=== PATIENT | female | born 1995 | race Caucasian/White ===

== ENCOUNTER 2020-10-05 14:34 | Emergency (ER) | payer BC, SELFPAY ==
[2020-10-05 15:20] VITALS: BP 129/69; PULSE 93; RESP 16; TEMP 36.3; O2SAT 99; BMI 45.3
--- NOTE | 2020-10-05 16:28 | PC.NURSE ---
pt refusing ekg
--- NOTE | 2020-10-05 16:36 | PC.NURSE ---
Patient refusing IV,states she passed out at work at 1130this am, states she has not been drinking enough water. veneer taping machine offbearer at bedside to do EKG and patient refused. Patient walking out at this time
== END 2020-10-05 16:39 | disposition left against medical advice (07) ==
PROVIDERS: Emergency Provider Emergency Medicine
DX: R55 Syncope and collapse (principal)
CPT/HCPCS: 99283